=== PATIENT | male | born 1990 | race Caucasian/White ===

== ENCOUNTER 2023-10-29 12:41 | Emergency (ER) | payer OTHER, SELFPAY ==
[2023-10-29 12:50] VITALS: BP 168/93; PULSE 102; RESP 18; TEMP 36.9; O2SAT 95; BMI 32.6
--- NOTE | 2023-10-29 13:06 | ED_ITS ---
HPI - Eye Problem <KATI Paredes - Last Filed: 10/29/23 13:45> General Chief complaint: Eye Problems Stated complaint: foreign object in eye Time Seen by Provider: 10/29/23 12:59 Source: patient Mode of arrival: Ambulatory History of Present Illness HPI Narrative: 33-year-old male, never smoker, presents to the emergency department with complaints of right eye irritation after getting a suspected wooden foreign body while working at a [employer] earlier today.. 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 Attempts to lavage the eye were unsuccessful at removing eye irritation. Patient able to keep his eye open with mild tearing. Related Data Previous Rx's Medication Instructions Recorded erythromycin 5 mg/gram (0.5 %) eye 0.5 inch EYE-RIGHT TID Corneal 10/29/23 ointment abrasion 5 days #3.5 grams Allergies Allergy/AdvReac Type Severity Reaction Status Date / Time No Known Drug Allergies Allergy Verified 10/29/23 12:54 Review of Systems <KATI Paredes - Last Filed: 10/29/23 13:45> Review of Systems Narrative: Narrative: See HPI. GENERAL: Denies chills, fatigue, fever, sweats. HEENT: Denies sinus pain, ear pain, sore throat, difficulty swallowing, dizziness, vision changes. Endorses right eye redness, tearing and discomfort. RESPIRATORY: Denies dyspnea, cough, wheezing, sputum. CARDIOVASCULAR: Denies chest pain, palpitations, edema. GASTROINTESTINAL: Denies nausea, vomiting, abdominal pain, diarrhea, constipation. : Denies dysuria, frequency, incontinence, hematuria, urinary retention, flank pain. MSK: Denies weakness, joint pain, or bony pain. SKIN: Denies rash, skin lesions, or pruritis. NEUROLOGIC: Denies weakness, dizziness, headache, numbness, confusion. PSYCHIATRIC: No concerning psychosocial issues. Patient History <KATI Paredes - Last Filed: 10/29/23 13:45> Social History Smoking Status: Never smoker Smoking Status: Never smoker alcohol intake frequency: 0-2 drinks per day Substance Use Type: does not use Exam <KATI Paredes - Last Filed: 10/29/23 13:45> Narrative Exam Narrative: Exam Narrative: GENERAL: This is a well-nourished, well-developed patient, in no acute distress. HEAD: Atraumatic. Normocephalic. EYES: Pupils equal round and reactive. Extraocular motions intact. Right-sided scleral injection with clear drainage/tearing. Normal visual acuity. ENT: Nose without bleeding, purulent drainage. Throat without erythema, tonsillar hypertrophy or exudate. Uvula midline. Airway patent. NECK: Trachea midline. No JVD or lymphadenopathy. Nontender. CARDIOVASCULAR: Regular rate and rhythm without murmurs, peripheral pulses intact, cap refill <2 sec. RESPIRATORY: Breath sounds equal and clear bilaterally. No wheezes, rales, or rhonchi. No cough. No increased respiratory effort. No accessory muscle use. GASTROINTESTINAL: Abdomen soft, non-tender, nondistended without guarding or rebound. No suprapubic pain. MSK: Moves all extremities. Normal range of motion, no clubbing or edema. Neurovascularly intact. NEURO: A&O x 3. SKIN: Warm, dry, no rashes or lesions noted. Initial Vital Signs Initial Vital Signs: Vital Signs Temperature 98.5 F 10/29/23 12:50 Pulse Rate 102 H 10/29/23 12:50 Respiratory Rate 18 10/29/23 12:50 Blood Pressure 168/93 H 10/29/23 12:50 Pulse Oximetry 95 10/29/23 12:50 Oxygen Delivery Method Room Air 10/29/23 12:50 Reviewed <Nick Sommer DO - Last Filed: 10/29/23 17:43> Initial Vital Signs Initial Vital Signs: Vital Signs Temperature 98.5 F 10/29/23 12:50 Pulse Rate 102 H 10/29/23 12:50 Respiratory Rate 18 10/29/23 12:50 Blood Pressure 168/93 H 10/29/23 12:50 Pulse Oximetry 95 10/29/23 12:50 Oxygen Delivery Method Room Air 10/29/23 12:50 Course <KATI Paredes - Last Filed: 10/29/23 13:45> Orders Ordered: Discontinued Medications Fluorescein Sodium (Fluorescein 1 Mg Strip) 1 mg EYE-RIGHT NOW ONE Stop: 10/29/23 13:03 Last Admin: 10/29/23 13:08 Dose: 1 mg Documented By: CHIDI Proparacaine HCl (Proparacaine 0.5% Ophth Amanda) 1 drops EYE-RIGHT NOW ONE Stop: 10/29/23 13:03 Last Admin: 10/29/23 13:08 Dose: 1 drops Documented By: CHIDI Vital Signs Vital signs: Vital Signs - 8 hr 10/29/23 12:50 10/29/23 13:46 Temperature 98.5 F Pulse Rate 102 H 97 H Respiratory Rate 18 17 Blood Pressure 168/93 H 141/69 H Pulse Oximetry 95 94 Oxygen Delivery Method Room Air Room Air <Nick Sommer DO - Last Filed: 10/29/23 17:43> Orders Ordered: Discontinued Medications Fluorescein Sodium (Fluorescein 1 Mg Strip) 1 mg EYE-RIGHT NOW ONE Stop: 10/29/23 13:03 Last Admin: 10/29/23 13:08 Dose: 1 mg Documented By: CHIDI Proparacaine HCl (Proparacaine 0.5% Ophth Amanda) 1 drops EYE-RIGHT NOW ONE Stop: 10/29/23 13:03 Last Admin: 10/29/23 13:08 Dose: 1 drops Documented By: CHIDI Vital Signs Vital signs: Vital Signs - 8 hr 10/29/23 12:50 10/29/23 13:46 Temperature 98.5 F Pulse Rate 102 H 97 H Respiratory Rate 18 17 Blood Pressure 168/93 H 141/69 H Pulse Oximetry 95 94 Oxygen Delivery Method Room Air Room Air MDM - Eye Problem <KATI Paredes - Last Filed: 10/29/23 13:45> Differential Diagnosis Differential diagnosis: Likely corneal abrasion, conjunctivitis and other (Foreign body in eye) MDM Narrative Medical decision making narrative: 33-year-old male with right eye redness and discomfort. Through the use of proparacaine, Q-tip and magnifying lens, removed small object from right lower eyelid. Through the use of fluorescein stain and black light, determined small corneal abrasion at 6 o'clock position of right eye. Pt tolerated procedure well. Will treat slight corneal abrasion with erythromycin ointment and discussed comfort measures. L&I paperwork completed in it's entirety. Discharge Plan Departure Patient Disposition: Home Clinical Impression: Corneal abrasion Qualifiers: Encounter type: initial encounter Laterality: right Qualified Code(s): S05.01XA - Injury of conjunctiva and corneal abrasion without foreign body, right eye, initial encounter Instructions: DI for Corneal Abrasion Activity Restrictions/Additional Instructions: *You have been diagnosed with a foreign body in right eye with subsequent corneal abrasion. We were able to remove the object from your eye. We will treat you with erythromycin ointment 3 times a day for the next 5 days. You may use cool compresses or [id number] medications as needed for comfort. *What to do: *Please continue to take your regular medications as directed. [x ] New medication prescriptions sent to your pharmacy: [[facility] ] [ ] New medication written as a paper prescription [ ] No new medications given *Please follow up with your primary care provider in 2-3 days, call for an appointment. Let them know you were seen in the Emergency Department and that we ask that you be seen in follow up. We will electronically transmit a record of today's note if your PCP is in our system *If you do not have a primary care provider please contact the [facility] Resource line at [phone]. They will ask some questions about your medical history and help get you set up with a doctor in the community. ? Return to ER if you should have any new, worsening or concerning symptoms, such as worsening pain, severe headache, confusion, chest pain, difficulty breathing, fever greater than 101 F, shaking chills, persistent vomiting to the point that you cannot drink fluids, or other new or worsening symptoms. Prescriptions: New erythromycin 5 mg/gram (0.5 %) ointment 0.5 inch EYE-RIGHT TID 5 Days Qty: 3.5 0RF Referrals: Marion Mendoza MD [Primary Care Provider] - Stand Alone Forms: Patient Portal/API ED Sign-out <Nick Sommer DO - Last Filed: 10/29/23 17:43> Cosign ED Attending Cosignature Attestation: Dr Sommer Co-Sign Statement: I was available for consultation during this patient's emergency department visit. This chart is signed by myself for administrative purposes only. I did not have direct contact with this patient during this visit. They were seen independently by the [facility].
[2023-10-29] MEDS: PROPARACAINE 0.5% OPHTH SOL 1 DROPS EYE-RIGHT (13:08)
[2023-10-29] MEDS: FLUORESCEIN 1 MG STRIP EYE-RIGHT (13:08)
[2023-10-29 13:46] VITALS: BP 141/69; PULSE 97; RESP 17; O2SAT 94
== END 2023-10-29 13:46 | disposition home or self-care (01) ==
PROVIDERS: Emergency Provider Registered Nurse; PCP Family Medicine
DX: T15.01XA Foreign body in cornea, right eye, initial encounter (principal); Y99.0 Civilian activity done for income or pay
CPT/HCPCS: 65205; 99282; 99283